=== PATIENT | female | born 1970 | race Caucasian/White ===

== ENCOUNTER → 2019-11-11 14:40 | Outpatient (CLI) | payer BC, SELFPAY ==
[2019-11-11 14:49] LABS: Basophils # 0.1 K/mm3 (0-0.2); Basophils % 1.3 % (0.1-2.0); Chloride 104 mmol/L (98-107); Eosinophils # 0.2 K/mm3 (0.0-0.4); Eosinophils % 2.3 % (0.1-12.0); Hematocrit 44.2 % (37.0-47.0); Hemoglobin 15.1 g/dL (12.2-16.2); Lymphocytes # 1.9 K/mm3 (0.7-4.5); Lymphocytes % 29.8 % (10-50); Mean Corpuscular HGB Conc 34.1 g/dL (31.8-35.4); Mean Corpuscular Hemoglobin 33.1 pg (27.0-31.2); Mean Corpuscular Volume 97.1 fl (81-99); Mean Platelet Volume 9.3 fl (7.4-10.4); Monocytes # 0.5 K/mm3 (0.1-1.0); Monocytes % 7.2 % (1.7-9.3); Neutrophils # 3.9 K/mm3 (1.8-7.8); Neutrophils % 59.5 % (37.0-80.0); Platelet Count 333 K/mm3 (142-424); Red Blood Count 4.55 M/mm3 (4.20-5.40); Red Cell Distribution Width 13.2 % (11.5-17.5); White Blood Count 6.5 K/mm3 (4.8-10.8)
[2019-11-11 14:50] LABS: Potassium 4.9 mmoL/L (3.5-5.1); Sodium 136 mmol/L (136-145)
[2019-11-11 14:52] LABS: Alanine Aminotransferase 19 U/L (12-78); Aspartate Amino Transferase 33 U/L (14-36); Blood Urea Nitrogen 11 mg/dl (7-17); Estimated Glomerular Filt Rate 132 ml/min (>60); GFR (African American) 159 ML/MIN (>60)
[2019-11-11 14:53] LABS: Albumin Level 4.2 g/dl (3.5-5.0); Albumin/Globulin Ratio 1.6 (1.1-1.8); Alkaline Phosphatase 83 U/L (38-126); Anion Gap 10.9 mEq/L (5-15); Bilirubin,Total 0.8 mg/dl (0.2-1.3); Calcium 9.9 mg/dl (8.4-10.2); Carbon Dioxide 26 mmol/L (22.0-30.0); Cholesterol 202 mg/dl (140-200); Globulin 2.7 g/dL (1.3-3.2); Glucose 105 mg/dl (74-100); HDL Cholesterol 72 mg/dl (40-60); Total Protein,Serum 6.9 g/dl (6.3-8.2); Triglycerides 80 mg/dl (30-150); VLDL Cholesterol 16 mg/dL (0-40)
[2019-11-11 14:55] LABS: Chol/HDL Ratio 2.8 (1-3.5)
[2019-11-11 15:12] LABS: Free T4 (Free Thyroxine) 0.97 ng/dl (0.78-2.19)
[2019-11-11 15:25] LABS: Thyroid Stimulating Hormone 1.33 uIU/mL (0.465-4.68)
[2019-11-11 16:07] LABS: 25-OH Vitamin D, Total 40.8 ng/mL (30-100)
== END ==
PROVIDERS: Visit Provider Emergency Medicine
DX: R53.83 Other fatigue (principal); E55.9 Vitamin D deficiency, unspecified
CPT/HCPCS: 80053; 80061; 82306; 84439; 84443; 85025

== ENCOUNTER → 2020-01-04 13:17 | Outpatient (CLI) | payer SELFPAY ==
--- NOTE | 2020-01-04 13:23 | CA_ITS ---
APPROVED REPORT EXAM: Comprehensive 2D, Doppler, and color-flow Echocardiogram Client Hr Manager: Naina Rodriguez CRT Ht: 5 ft 9 in Wt: 166lbs BSA: 1.91 BP: 130/78 mmHg Indications: Hypertension/HDD, smoker, tachycardia 2D Dimensions LVOT 1.80 cm (M/F) 1.5-2.5 M-Mode Dimensions RVDd 2.50 cm (0.9-2.6) LA Diam 4.00 cm (1.9-4.0) LVDd 4.80 cm (3.5-5.7) Ao Diam 3.00 cm (2.0-3.7) LVDs 2.90 cm (3.5-5.7) AV Cusp 1.90 cm (1.5-2.6) IVSd 1.00 cm (0.6-1.1) PWd 0.70 cm (0.6-1.1) EF (Teich) 70.20% FS 39.60% EDV (Teich) 108.00 mL ESV (Teich) 32.20 mL LV Diastology LAT E' 8.87 (<10 cm/sec) Aortic Valve AoV Peak Kelby. 225.00 (50-130 cm/s) AO Peak GR. 20.00 mmHg Pulmonary Valve PA End VMAX 119.00 cm/s PA Accel Time 169.00 (>120 msec) Tricuspid Valve TR P. Velocity 262.00 cm/s RAP Estimate 10.00 mmHg RVSP 37.00 mmHg Left Ventricle Left atrium is mildly enlarged, left ventricle is normal size, mild concentric left ventricular hypertrophy, hyperdynamic left ventricular systolic function, visually estimated ejection fraction over 65% with no regional wall motion abnormality, grade 1 diastolic dysfunction seen without tissue Doppler evidence of raise left atrial pressure. Right Ventricle Right atrium and right ventricle are normal size and contractility. Aortic Valve Aortic valve is minimally thickened and fibrosed, there is no aortic stenosis or aortic insufficiency. Mitral Valve Mitral valve is grossly normal, there is mild mitral regurgitation. Tricuspid Valve Tricuspid valve grossly normal, there is mild tricuspid regurgitation, tricuspid regurgitation jet velocity is inadequate for calculation of the right ventricular systolic pressure. Pulmonic Valve Pulmonic valve is poorly visualized. Great Vessels Aortic root is normal size. Pericardium No significant pericardial effusion noted. Conclusion 1. Mildly enlarged left atrium, normal left ventricular size, mild concentric left ventricular hypertrophy, hyperdynamic left ventricular systolic function, visually estimated ejection fraction over 65% with no regional wall motion abnormality, grade 1 diastolic dysfunction seen without tissue Doppler evidence of raise left atrial pressure. 2. Mild mitral and tricuspid regurgitation. 3. No significant pericardial effusion noted. Electronically signed by : Kush Givens, 01/04/2020 20:43:53
== END ==
PROVIDERS: PCP Emergency Medicine; Visit Provider Emergency Medicine
DX: R00.0 Tachycardia, unspecified (principal)
CPT/HCPCS: 93306

== ENCOUNTER → 2021-04-21 15:48 | Outpatient (CLI) | payer BC, SELFPAY ==
[2021-04-21 16:09] LABS: Alanine Aminotransferase 14 U/L (12-78); Albumin Level 4.3 g/dl (3.5-5.0); Albumin/Globulin Ratio 1.8 (1.1-1.8); Alkaline Phosphatase 76 U/L (38-126); Anion Gap 9.3 mEq/L (5-15); Aspartate Amino Transferase 27 U/L (14-36); Bilirubin,Total 0.5 mg/dl (0.2-1.3); Blood Urea Nitrogen 13 mg/dl (7-17); Calcium 9.6 mg/dl (8.4-10.2); Carbon Dioxide 27 mmol/L (22.0-30.0); Chloride 103 mmol/L (98-107); Chol/HDL Ratio 3.3 (1-3.5); Cholesterol 214 mg/dl (140-200); Estimated Glomerular Filt Rate 106 ml/min (>60); GFR (African American) 128 ML/MIN (>60); Globulin 2.4 g/dL (1.3-3.2); Glucose 117 mg/dl (74-100); HDL Cholesterol 64 mg/dl (40-60); Potassium 4.3 mmoL/L (3.5-5.1); Sodium 135 mmol/L (136-145); Total Protein,Serum 6.7 g/dl (6.3-8.2); Triglycerides 100 mg/dl (30-150); VLDL Cholesterol 20 mg/dL (0-40)
[2021-04-21 16:18] LABS: Basophils # 0.1 K/mm3 (0-0.2); Basophils % 1.7 % (0.1-2.0); Eosinophils # 0.1 K/mm3 (0.0-0.4); Hematocrit 47.1 % (37.0-47.0); Hemoglobin 15.2 g/dL (12.2-16.2); Lymphocytes # 1.7 K/mm3 (0.7-4.5); Lymphocytes % 26.5 % (10-50); Mean Corpuscular HGB Conc 32.2 g/dL (31.8-35.4); Mean Corpuscular Hemoglobin 32.8 pg (27.0-31.2); Mean Corpuscular Volume 101.8 fl (81-99); Mean Platelet Volume 9.8 fl (7.4-10.4); Monocytes # 0.5 K/mm3 (0.1-1.0); Monocytes % 6.9 % (1.7-9.3); Neutrophils # 4.1 K/mm3 (1.8-7.8); Neutrophils % 63.9 % (37.0-80.0); Platelet Count 404 K/mm3 (142-424); Red Blood Count 4.63 M/mm3 (4.20-5.40); Red Cell Distribution Width 13.5 % (11.5-17.5); White Blood Count 6.5 K/mm3 (4.8-10.8)
[2021-04-21 16:20] LABS: Direct LDL Cholesterol 129.54 mg/dL (100-129)
== END ==
PROVIDERS: Visit Provider Emergency Medicine
DX: I10 Essential (primary) hypertension (principal); E55.9 Vitamin D deficiency, unspecified
CPT/HCPCS: 80053; 80061; 82306; 84439; 84443; 85025

== ENCOUNTER → 2022-05-08 23:00 | Outpatient (CLI) | payer BC, SELFPAY ==
[2022-05-08 22:31] LABS: Basophils # 0.1 K/mm3 (0-0.2); Basophils % 1.4 % (0.1-2.0); Eosinophils # 0.1 K/mm3 (0.0-0.4); Eosinophils % 1.9 % (0.1-12.0); Hematocrit 44.3 % (37.0-47.0); Hemoglobin 14.4 g/dL (12.2-16.2); Lymphocytes # 2.6 K/mm3 (0.7-4.5); Lymphocytes % 37.7 % (10-50); Mean Corpuscular HGB Conc 32.5 g/dL (31.8-35.4); Mean Corpuscular Hemoglobin 31.7 pg (27.0-31.2); Mean Corpuscular Volume 97.6 fl (81-99); Mean Platelet Volume 9.4 fl (7.4-10.4); Monocytes # 0.5 K/mm3 (0.1-1.0); Monocytes % 6.5 % (1.7-9.3); Neutrophils # 3.6 K/mm3 (1.8-7.8); Neutrophils % 52.5 % (37.0-80.0); Platelet Count 361 K/mm3 (142-424); Red Blood Count 4.54 M/mm3 (4.20-5.40); Red Cell Distribution Width 12.9 % (11.5-17.5); White Blood Count 6.9 K/mm3 (4.8-10.8)
[2022-05-08 22:37] LABS: Alanine Aminotransferase 19 U/L (12-78); Albumin Level 4.6 g/dl (3.5-5.0); Albumin/Globulin Ratio 1.8 (1.1-1.8); Alkaline Phosphatase 99 U/L (38-126); Aspartate Amino Transferase 32 U/L (14-36); Bilirubin,Total 0.3 mg/dl (0.2-1.3); Blood Urea Nitrogen 16 mg/dl (7-17); Calcium 9.5 mg/dl (8.4-10.2); Carbon Dioxide 26 mmol/L (22.0-30.0); Chloride 107 mmol/L (98-107); Chol/HDL Ratio 3.3 (1-3.5); Cholesterol 223 mg/dl (140-200); Estimated Glomerular Filt Rate 105 ml/min (>60); GFR (African American) 128 ML/MIN (>60); Globulin 2.5 g/dL (1.3-3.2); Glucose 110 mg/dl (74-100); HDL Cholesterol 67 mg/dl (40-60); Total Protein,Serum 7.1 g/dl (6.3-8.2); Triglycerides 110 mg/dl (30-150); VLDL Cholesterol 22 mg/dL (0-40)
[2022-05-08 22:47] LABS: Direct LDL Cholesterol 121.01 mg/dL (100-129)
[2022-05-08 22:48] LABS: Sodium 140 mmol/L (136-145)
[2022-05-08 22:53] LABS: 25-OH Vitamin D, Total 41.4 ng/mL (30-100)
[2022-05-08 22:54] LABS: Free T4 (Free Thyroxine) 1.02 ng/dl (0.78-2.19)
[2022-05-08 23:08] LABS: Thyroid Stimulating Hormone 1.37 uIU/mL (0.465-4.68)
== END ==
PROVIDERS: PCP Emergency Medicine; Visit Provider Emergency Medicine
DX: I10 Essential (primary) hypertension (principal); E55.9 Vitamin D deficiency, unspecified; Z79.899 Other long term (current) drug therapy
CPT/HCPCS: 80053; 80061; 82306; 84439; 84443; 85025

== ENCOUNTER 2022-09-03 16:00 | Outpatient (RCR) | payer BC, SELFPAY ==
--- NOTE | 2022-07-27 15:27 | HMH.PTOPEV ---
PT Outpatient Evaluation Rehab PT Outpatient Evaluation Start: 07/27/22 15:16 Freq: Status: Active Protocol: Document 07/27/22 15:16 BOY (Rec: 07/27/22 15:27 BOY [id number]) E-signed By Albert Martinez, PT Outpatient Therapy Subjective History Subjective History Patient is a 51 year old female presenting to outpatient PT with reports of acute LBP with no reports of radicular symptoms of insidious onset starting approx 2 months. Patient reports that she had a simialar bout of LPB approx 20 years ago as a result of a bulging disc. She was prescribed oral steriods and muscle relaxers that have provided minimal relief. Pain specific to R PSIS. SI special tests negative for malalignment today. Comorbidities incude HTN. Chief Complaint Pain Symptom Type Ache,Dull Symptoms Relieved By Activity Symptoms Aggravated By Sitting,Bending/Stooping, Lifting Prior Functional Limitations None Current Functional Limitations Lifting,Sitting,Bending/ Stooping Symptom Description Constant but Variable Level of pain today (0-10) 6 Pain scale - at its best (0-10) 6 Pain scale - at its worst (0-10) 7 Lumbopelvic Eval Posture Thoracic Spine Posture Standing Position Increased Kyphosis Lumbar Spine Posture Standing Position Increased Lordosis Palapation tenderness right Lumbar/Sacral Palpation Overall Comment PSIS 2/4 Accessory Movement L5 right S1 right Range of Motion Lumbar Spine Active Flexion Range of 59 Motion (degrees) Lumbar Spine Active Extension Range of 21 Motion (degrees) Left Lumbar Spine Lateral Flexion Active 16 Range of Motion (degrees) Right Lumbar Spine Lateral Flexion 20 pain Active Range of Motion (degrees) Lumbar Spine ROM Limitations Soft Tissue Tightness Manual Muscle Test Bilateral Knee Extension Strength Grade 5 Normal Knee Flexion Strength Grade 5 Normal Hip Flexion Strength Grade 5 Normal Extensor Hallucis Longus Strength Grade 5 Normal Ankle Dorsiflexion Strength Grade 5 Normal Gastronemius/Soleus Strength Grade 5 Normal Special Tests Hip Anival (ANGELY) Test Positive Left,Positive Right Hip Jodee Test
== END 2022-09-03 16:05 | disposition home or self-care (01) ==
LOC: PT 16:00
PROVIDERS: PCP Emergency Medicine; Visit Provider Emergency Medicine
DX: M54.41 Lumbago with sciatica, right side (principal); M54.42 Lumbago with sciatica, left side
CPT/HCPCS: 97010; 97012; 97014; 97110; 97163; G0283

== ENCOUNTER → 2022-10-16 12:50 | Outpatient (CLI) | payer BC, SELFPAY ==
--- NOTE | 2022-10-16 12:50 | MR_ITS ---
FINAL REPORT TECHNIQUE: Multiplanar and multisequence imaging of the lumbar spine was obtained without contrast. CLINICAL HISTORY: Lower back pain worse on right side. right leg and hip pain numbness and tingling. FINDINGS: There is normal alignment of the lumbar vertebral bodies. Vertebral body height is preserved. The spinal cord ends at the level of L2. There is normal signal intensity within the substance of the distal spinal cord. No acute bone marrow edema or pathologic marrow replacement. No acute paraspinal abnormality is identified. L1-2: There is no focal disc herniation, central canal stenosis or neuroforaminal narrowing. L2-3: There is no focal disc herniation, central canal stenosis or neuroforaminal narrowing. L3-4: There is a right paracentral extruded disc. Disc material contacts and posteriorly displaces the right L4 nerve root within the canal. There is moderate central canal stenosis. There is mild bilateral neural foraminal narrowing. L4-5: There is an annular bulge with degenerative endplate change and facet osteoarthropathy. There is a superimposed disc protrusion. There is mild central canal stenosis. There is moderate right and mild left neural foraminal narrowing. L5-S1: There is an annular bulge with degenerative endplate change and facet osteoarthropathy. There is no central canal stenosis. There is mild right neural foraminal narrowing. IMPRESSION: Right paracentral extruded disc at L3-L4 contacts and posteriorly displaces the right L4 nerve root within the canal. Multilevel degenerative disease at other levels as described. Reviewed, Interpreted and Dictated by Rachel Francois MD Transcribed by Luke Castro Authenticated and . [facility]
== END ==
LOC: RAD 12:50
PROVIDERS: PCP Emergency Medicine; Visit Provider Nurse Practitioner Family
DX: M54.50 Low back pain, unspecified (principal); M54.41 Lumbago with sciatica, right side; M54.42 Lumbago with sciatica, left side
CPT/HCPCS: 72148; 76376

== ENCOUNTER → 2022-12-14 13:27 | Outpatient (POV) | payer BC, SELFPAY ==
[2022-12-14 13:29] VITALS: BP 156/89; PULSE 121; RESP 18; O2SAT 98; BMI 21.4
--- NOTE | 2022-12-14 14:03 | EXP.PAIN.OV ---
HPI Data of Consult Patient: new to practice Consult date: 12/14/22 Requesting Physician: Anival Dudley CRNA Primary Care Provider: Jeromy Vega MD Consult Narrative Reason for consult: Lumbar back pain. Bilateral hip and leg radicular symptoms. History of present illness: Ms. Bustamante is a 52 year old female who comes our clinic today for initial evaluation regarding chronic low back pain she describes as constant, dull, aching. Patient also complains of bilateral hip and leg radicular symptoms. Patient rates her pain 7/10. Patient is referral from Dr. Dsouza. He does not recommend any surgery at this time. Patient's lumbar MRI shows degenerative disc lumbar spine multiple levels. Disc bulge L4-5, L5-S1. Disc herniation L3-4. Patient attended physical therapy for 6 weeks in the month of August and September. She reports pain did decrease towards the end of physical therapy session. However, 1 week after physical therapy pain returned in its entirety. Patient is currently taking Flexeril 10 mg 1 p.o. as needed. Patient tried and failed tramadol secondary to nausea and vomiting. Her Tang #[id number] has been reviewed and appropriate. I discussed in detail with the patient regarding lumbar epidural steroid injection at the L3-4 level. Answered questions. Patient wishes to proceed. CC: Anival Dudley CRNA [facility] Disclaimer: The information contained in this section may have been updated after the patient was seen, as this information can be updated by other users. Medical History Hypertension Tachycardia with heart rate 100-120 beats per minute Family History Father Afib Social History Smoking Status: Current every day smoker tobacco type: cigarettes packs per day: 1 alcohol intake: current substance use type: denies use current occupational status: employed Travel in the last 8 weeks: None household members: significant other housing: house Meds Home Medications and Allergies Home Medications Medication Instructions Recorded Confirmed Type cyclobenzaprine 10 mg tablet 10 mg PO TID PRN muscle spasm #60 10/03/22 11/30/22 Rx tabs atorvastatin 10 mg tablet See Rx Instructions .Route 11/12/22 11/30/22 Rx .COMPLEX #90 tabs lisinopril 10 mg tablet See Rx Instructions .Route 11/12/22 11/30/22 Rx .COMPLEX #30 tabs metoprolol succinate 50 mg 50 mg PO DAILY #90 tabs 11/30/22 11/30/22 Rx tablet,extended release 24 hr (Toprol XL) New Prescriptions to Start Prescriptions: Allergies Allergy/AdvReac Type Severity Reaction Status Date / Time No Known Allergies Allergy Verified 11/30/22 12:54 Assessment and Plan *Assessment and plan (1) Lumbar disc disease with radiculopathy: Status: Acute Category: Medical Code(s): M51.16 - Intervertebral disc disorders with radiculopathy, lumbar region (2) Lumbar canal stenosis: Status: Acute Category: Medical Code(s): M48.061 - Spinal stenosis, lumbar region without neurogenic claudication (3) Lumbar foraminal stenosis: Status: Acute Category: Medical Code(s): M48.061 - Spinal stenosis, lumbar region without neurogenic claudication (4) Spinal cord compression: Status: Acute Category: Medical Code(s): G95.20 - Unspecified cord compression (5) Low Back Pain: Status: Acute Qualifiers: Chronicity: acute Back pain laterality: bilateral Sciatica presence: with sciatica Sciatica laterality: sciatica of right side Qualified Code(s): M54.41 - Lumbago with sciatica, right side Category: Medical Code(s): M54.50 - Low back pain, unspecified Plan Discussed treatment options in detail with the patient. I recommend lumbar epidural steroid injection at the L3-4 le
== END ==
PROVIDERS: PCP Emergency Medicine; Visit Provider Nurse Anesthetist, Certified Registered
DX: M51.16 Intervertebral disc disorders with radiculopathy, lumbar region (principal); M48.061 Spinal stenosis, lumbar region without neurogenic claudication; G95.20 Unspecified cord compression; M54.41 Lumbago with sciatica, right side
CPT/HCPCS: 99202; G0463

== ENCOUNTER 2022-12-25 10:17 | Day surgery (SDC) | payer BC, SELFPAY ==
[2022-12-25 10:30] VITALS: BP 169/91; PULSE 112; RESP 16; TEMP 37; O2SAT 99; BMI 21.4
--- NOTE | 2022-12-25 10:34 | EXP.PAIN.PRO ---
Procedure Date: 12/25/22 Time: 10:35 Anesthesiologist:: Anival Dudley CRNA Complications:: None Pre-procedure Diagnosis:: Degenerative disc lumbar spine multilevels. Lumbar radiculopathy. Disc bulge L4-5, L5-S1. Disc herniation L3-4. Post-procedure Diagnosis:: Same. Indications for Procedure:: Very pleasant 52-year-old female that comes our clinic today for lumbar epidural steroid injections L3-4 level. Patient complains of low back pain she describes as constant, dull, aching. Patient also complains of bilateral hip and leg radicular symptoms. She rates her pain 7/10. Procedure Details:: Procedure: Lumbar epidural steroid injection under fluoroscopy Informed consent was obtained and the risks and benefits of the procedure were explained to the patient. The patient was taken to the procedure room and noninvasive monitors placed, including noninvasive blood pressure cuff and pulse oximeter. The back was viewed using C-arm Fluoroscopy and prepped using Chloraprep as a cleansing solution and the L4-L5 interspace was palpated. Skin and subcutaneous tissues were anesthetized using lidocaine 1.5% and a 25-gauge needle. After this, an 18-gauge Touhy epidural needle was placed into the L4-L5 interspace and advanced using fluoroscopic guidance and loss of resistance to air until the epidural space was encountered. After confirmation of needle placement in the epidural space, with dye, a solution containing normal saline, 3 mL and Depo-Medrol 80 mg were incrementally injected into the lumbar epidural space. The patient tolerated the procedure well with no complications. The patient was observed in the Pain Clinic and then discharged home neurologically intact. Plan and Disposition:: Patient was discharged without incident.
[2022-12-25 10:43] VITALS: BP 173/98; PULSE 114; RESP 18; O2SAT 99
[2022-12-25 10:44] VITALS: BP 167/102; PULSE 124; RESP 18; O2SAT 99
[2022-12-25 10:45] VITALS: BP 167/102; PULSE 124; RESP 18; O2SAT 99
== END 2022-12-25 10:43 | disposition home or self-care (01) ==
PROVIDERS: PCP Emergency Medicine; Visit Provider Nurse Anesthetist, Certified Registered
DX: M51.16 Intervertebral disc disorders with radiculopathy, lumbar region (principal)
CPT/HCPCS: 62323; J1040

== ENCOUNTER → 2023-01-11 11:25 | Outpatient (POV) | payer BC, SELFPAY ==
[2023-01-11 11:38] VITALS: BP 180/99; PULSE 117; RESP 20; BMI 21.4
--- NOTE | 2023-01-11 12:00 | A.OFFVIS_ITS ---
[facility] Pain Management SOAP Note Subjective:: This patient is a very pleasant 52-year-old female that comes our clinic today for follow-up visit after receiving lumbar epidural steroid injection at the L4- 5 level on 12/25/2022. Patient reports 0 pain following injection. Prior to the injection patient complained of low lumbar back pain as well as bilateral hip and leg radicular symptoms. Patient's MRI shows degenerative disc lumbar spine multilevels. Disc bulge L4-5, L5-S1. Disc herniation L3-4. Patient has surgery consultation in [address] Dsouza at the [facility]. Based on that visit she will contact us for further treatment if necessary. Patient's Tang #[id number] has been reviewed and appropriate. Patient rates her pain today 0/10. Objective:: Patient is awake alert [place] x3. No acute distress. Flexion-extension lumbar spine somewhat guarded secondary to pain. Deep tendon reflexes upper and lower extremities normal. Motor strength upper and lower extremities normal. There is no gross sensory deficit. Gait is normal. Assessment:: Degenerative disc disease lumbar spine multilevels. Lumbar radiculopathy. Disc bulge L4-5, L5-S1. Disc herniation L3-4. Plan:: Patient will contact us after surgical consultation with Dr. Dsouza at the [facility] in 2 weeks. We will continue treatment for her if in fact no surgery is indicated. [facility] Disclaimer: The information contained in this section may have been updated after the vivienne ent was seen, as this information can be updated by other users. Medical History Hypertension Tachycardia with heart rate 100-120 beats per minute Family History Father Afib Social History Smoking Status: Current every day smoker tobacco type: cigarettes packs per day: 1 alcohol intake: current substance use type: denies use current occupational status: other Travel in the last 8 weeks: None household members: significant other housing: house
== END ==
PROVIDERS: PCP Emergency Medicine; Visit Provider Nurse Anesthetist, Certified Registered
DX: M51.16 Intervertebral disc disorders with radiculopathy, lumbar region (principal)
CPT/HCPCS: 99212; G0463

== ENCOUNTER 2023-08-15 13:04 | Outpatient (CLI) | payer OTHER, SELFPAY ==
[2023-08-15 18:22] LABS: Basophils # 0.1 K/mm3 (0-0.2); Eosinophils # 0.1 K/mm3 (0.0-0.4); Eosinophils % 1.9 % (0.1-12.0); Hematocrit 40.3 % (37.0-47.0); Hemoglobin 12.9 g/dL (12.2-16.2); Lymphocytes # 2.3 K/mm3 (0.7-4.5); Mean Corpuscular HGB Conc 32.1 g/dL (31.8-35.4); Mean Corpuscular Hemoglobin 32.1 pg (27.0-31.2); Mean Platelet Volume 8.9 fl (7.4-10.4); Monocytes # 0.4 K/mm3 (0.1-1.0); Neutrophils # 3.1 K/mm3 (1.8-7.8); Neutrophils % 52.1 % (37.0-80.0); Platelet Count 335 K/mm3 (142-424); Red Blood Count 4.03 M/mm3 (4.20-5.40); Red Cell Distribution Width 13.6 % (11.5-17.5)
[2023-08-15 18:54] LABS: Alanine Aminotransferase 32 U/L (12-78); Albumin Level 4.3 g/dl (3.5-5.0); Albumin/Globulin Ratio 1.7 (1.1-1.8); Alkaline Phosphatase 96 U/L (38-126); Anion Gap 11.7 mEq/L (5-15); Aspartate Amino Transferase 39 U/L (14-36); Bilirubin,Total 0.4 mg/dl (0.2-1.3); Blood Urea Nitrogen 15 mg/dl (7-17); Calcium 9.9 mg/dl (8.4-10.2); Carbon Dioxide 29 mmol/L (22.0-30.0); Chloride 102 mmol/L (98-107); Chol/HDL Ratio 2.1 (1-3.5); Cholesterol 188 mg/dl (140-200); Estimated Glomerular Filt Rate 88 ml/min (>60); GFR (African American) 106 ML/MIN (>60); Globulin 2.6 g/dL (1.3-3.2); Glucose 98 mg/dl (74-100); HDL Cholesterol 89 mg/dl (40-60); Potassium 4.7 mmoL/L (3.5-5.1); Sodium 138 mmol/L (136-145); Total Protein,Serum 6.9 g/dl (6.3-8.2); Triglycerides 125 mg/dl (30-150); VLDL Cholesterol 25 mg/dL (0-40)
[2023-08-15 19:02] LABS: 25-OH Vitamin D, Total 34.8 ng/mL (30-100)
[2023-08-15 19:30] LABS: Thyroid Stimulating Hormone 1.26 uIU/mL (0.465-4.68)
== END 2023-08-15 23:59 | disposition home or self-care (01) ==
LOC: LAB.DROPOF 08-16 13:05
PROVIDERS: Visit Provider Family Medicine
DX: I10 Essential (primary) hypertension (principal); F17.210 Nicotine dependence, cigarettes, uncomplicated; E78.5 Hyperlipidemia, unspecified; Z79.899 Other long term (current) drug therapy
CPT/HCPCS: 80053; 80061; 82306; 84443; 85025

== ENCOUNTER 2024-09-22 13:47 | Outpatient (CLI) | payer OTHER, SELFPAY ==
--- OUTSIDE RECORDS SUMMARY | 2024-09-22 13:50 | XMS_ITS | Clinical Summary ---
Author Organization Healthcare Address [address] [place] [address] Care Team Providers Care Account Executive Agribusiness Name Role Phone Olaf Dsouza MD Unavailable [phone] Jeromy Vega MD Primary Care Provider + [phone] Allergies No known active allergies Medications atorvastatin (Lipitor) 10 MG tablet 1 (one) time each day. 11/12/2022 Active lisinopril 10 MG tablet Take 1 tablet (10 mg) by mouth 1 (one) time each day. 11/16/2022 Active metoprolol succinate XL (Toprol-XL) 25 MG 24 hr tablet Take 1 tablet (25 mg) by mouth 1 (one) time each day. 10/16/2022 Active cyclobenzaprine (Flexeril) 10 MG tablet Take 1 tablet (10 mg) by mouth if needed. 10/03/2022 Active Active Problems No known active problems Family History Medical History Relation Name Comments Back pain/problems Brother Back pain/problems Father Relation Name Status Comments Brother Father Social History Tobacco Use Types Packs/Day Years Used Date Smoking Tobacco: Every Day Cigarettes 1 25 Smokeless Tobacco: Never Alcohol Use Standard Drinks/Week Comments Yes 0 (1 standard drink = 0.6 oz pur e alcohol) Socially Comments Unknown Sex and Gender Information Value Date Recorded Sex Assigned at Not on file Legal Sex Female 8:12 PM EDT Gender Identity Not on file Sexual Orientation Not on file Last Filed Vital Signs Vital Sign Reading Time Taken Comments Blood Pressure 165/101 01/29/2023 1:52 PM EDT Pulse - - Temperature - - Respiratory Rate - - Oxygen Saturation - - Inhaled Oxygen Concentration - - Weight 68 kg (150 lb) 01/29/2023 1:52 PM EDT Height 175.3 cm (5' 9 ) 01/29/2023 1:52 PM EDT Body Mass Index 22.15 01/29/2023 1:52 PM EDT Plan of Treatment Health Maintenance Due Date Last Done Comments [facility]-Depression Screening 1970 [facility]-HIV Screening 1970 [facility]-Hepatitis C Screening 1970 [facility]-Infant/Child/Adol SDOH Screenings 1970 [facility]- SDOH Screenings 1988 [facility]-Adult SDOH Screenings 1988 [facility]-Hepatitis B Vaccines (1 of 3 - 19+ 3-dose series) 1989 [facility]-Pap Smear 11/28/1991 [facility]-DTaP,Tdap,and Td Vaccine s (1 - Tdap) 06/04/1996 06/03/1996 [facility]-Cervical Cancer Screening 2000 [facility]-HPV/Cotest 2000 CT Colonography 11/28/2015 Colonoscopy 11/28/2015 FIT-DNA 11/28/2015 FIT 11/28/2015 FOBT 11/28/2015 Sigmoidoscopy 11/28/2015 [facility]-Colorectal Cancer Screening 11/28/2015 [facility]-Breast Cancer Screening 2020 [facility]-Pneumococcal Vaccine: 50 + Years (1 of 1 - PCV) 2020 [facility]-Zoster Vaccines (1 of 2) 2020 [id number] Vaccine (1 - 20 24-25 season) 2023 [facility]-Influenza Vaccine ([place]as[place] n Ended) 2024 HPV Vaccines Aged Out No longer eligi ble based on patient's age to complete this topic [facility]-HIB Vaccines Aged Out No longer e ligible based on patient's age to complete this topic [facility]-Hepatitis A Vaccines Aged Out No longer eligible based on patient's age to complete this topic [facility]-IPV Vaccines Aged Out No longer e ligible based on patient's age to complete this topic [facility]-Rotavirus Vaccines Aged Out No lo nger eligible based on patient's age to complete this topic Insurance [employer] Care Teams Account Executive Agribusiness Relationship Specialty Start Date End Date Jeromy Vega MD [address] [place] [id number] PCP - General 11/27/22 Olaf Dsouza MD [address] [facility] [address] [place] [address] Surgeon Neurosurgery 11/27/22
--- OUTSIDE RECORDS SUMMARY | 2024-09-22 13:50 | XMS_ITS | Encounter Summary ---
Author Organization Healthcare Address [address] [place] [address] Care Team Providers Care Courier Delivery Driver Name Role Phone Olaf Dsouza MD Unavailable [phone] Jeromy Vega MD Primary Care Provider [phone] Encounter Details Date Type Department Care Team (Late st Contact Info) Description 10/16/2022 Orders Only External Location [address] [place] [address] Stalin Ramirez APRN [address] [place] [address] Social History Tobacco Use Types Packs/Day Years Used Date Smoking Tobacco: Never Assessed Comments Unknown Sex and Gender Information Value Date Recorded Sex Assigned at Not on file Legal Sex Female 8:12 PM EDT Gender Identity Not on file Sexual Orientation Not on file documented as of this encounter Plan of Treatment Not on file documented as of this encounter Procedures Procedure Name Priority Date/Time Associated Diagnosis Comments MR OUTSIDE IMAGES 10/16/2022 12:48 PM EDT documented in this encounter Results * MR transfer of outside films (10/16/2022 12:48 PM EDT) Anatomical Region Laterality Modality Magnetic Resonan ce 10/16/2022 12:4 8 PM EDT Stalin Ramirez OUTBOARD [employer]ORS EXPERIMENTAL MECHANIC IMG MRI PROCEDURES Final Re sult documented in this encounter Visit Diagnoses Not on filedocumented in this encounter Care Teams Courier Delivery Driver Relationship Specialty Start Date End Date Jeromy Vega MD [address] [place] [address] PCP - General 11/27/22 Olaf Dsouza MD [address] [place] [address] Surgeon Neurosurgery 11/27/22 documented as of this encounter
--- NOTE | 2024-09-22 13:53 | XR_ITS ---
FINAL REPORT CLINICAL HISTORY: Left Hand fx FINDINGS: LEFT HAND 4 views demonstrate no acute fracture or dislocation. The visualized joint spaces are normally aligned. Mild degenerative changes are noted. The soft tissues are unremarkable. IMPRESSION: No acute process. Reviewed, Interpreted and Dictated by Nathaly Knight MD Transcribed by Tori Hernandez Authenticated and [facility]
== END 2024-09-22 23:59 | disposition home or self-care (01) ==
LOC: RAD 13:48
PROVIDERS: PCP Family Medicine; Visit Provider Physician Assistant
DX: S62.92XA Unspecified fracture of left hand, initial encounter for closed fracture (principal)
CPT/HCPCS: 73130

== ENCOUNTER 2024-11-19 12:23 | Outpatient (CLI) | payer OTHER, SELFPAY ==
[2024-11-19 19:07] LABS: Hematocrit 38.8 % (37.0-47.0); Hemoglobin 12.6 g/dL (12.2-16.2); Immature Granulocytes % 0.2 %; Mean Corpuscular HGB Conc 32.5 g/dL (31.8-35.4); Mean Corpuscular Hemoglobin 31.6 pg (27.0-31.2); Mean Corpuscular Volume 97.2 fl (81-99); Nucleated Red Blood Cells % 0 %; Platelet Count 330 K/mm3 (142-424); Red Blood Count 3.99 M/mm3 (4.20-5.40); Red Cell Distribution Width-SD 45.5 fL; White Blood Count 6.4 K/mm3 (4.8-10.8)
[2024-11-19 19:57] LABS: Alanine Aminotransferase 18 U/L (12-78); Albumin Level 4.3 g/dl (3.5-5.0); Albumin/Globulin Ratio 1.7 (1.1-1.8); Alkaline Phosphatase 96 U/L (38-126); Anion Gap 12.2 mEq/L (5-15); Aspartate Amino Transferase 29 U/L (14-36); Bilirubin,Total 0.4 mg/dl (0.2-1.3); Blood Urea Nitrogen 15 mg/dl (7-17); Calcium 9.6 mg/dl (8.4-10.2); Carbon Dioxide 25 mmol/L (22.0-30.0); Chloride 105 mmol/L (98-107); Cholesterol 165 mg/dl (140-200); Creatinine,Serum 0.70 mg/dl (0.52-1.04); Estimated Glomerular Filt Rate 88 ml/min (>60); GFR (African American) 106 ML/MIN (>60); Globulin 2.6 g/dL (1.3-3.2); Glucose 107 mg/dl (74-100); HDL Cholesterol 67 mg/dl (40-60); Potassium 4.2 mmoL/L (3.5-5.1); Sodium 138 mmol/L (136-145); Total Protein,Serum 6.9 g/dl (6.3-8.2); Triglycerides 96 mg/dl (30-150)
[2024-11-19 20:27] LABS: Thyroid Stimulating Hormone 0.70 uIU/mL (0.465-4.68)
--- OUTSIDE RECORDS SUMMARY | 2024-11-23 12:28 | XMS_ITS | Clinical Summary ---
Author Organization Healthcare Address [address] [place] [address] Care Team Providers Care Proposition Player Name Role Phone Olaf Dsouza MD Unavailable [phone] Jeromy Vega MD Primary Care Provider + [phone] Allergies No known active allergies Medications atorvastatin [...] [facility]-HIV Screening 1970 [facility]-Hepatitis C Screening 1970 [facility]-/Child/Adol SDOH Screenings 1970 [facility]- SDOH Screenings 1988 [...] 2020 [facility]-Zoster Vaccines (1 of 2) 2020 [id number] Vaccine (1 - 20 24-25 season) 2023 [facility]-Influenza Vaccine (#1) 2024 HPV Vaccines Aged Out No longer [...] patient's age to complete this topic Insurance ANTHEM Care Teams Proposition Player Relationship Specialty Start Date End Date Jeromy Vega MD [address] [place] [address] PCP - General 11/27/22 Olaf Dsouza MD [address] [facility] [address] [place] [address] Surgeon Neurosurgery 11/27/22
--- OUTSIDE RECORDS SUMMARY | 2024-11-23 12:29 | XMS_ITS | Encounter Summary ---
Author Organization Healthcare Address [address] [place] [address] Care Team Providers Care Microsoft Bi Developer Name Role Phone Olaf Dsouza MD Unavailable [phone] Jeromy Vega MD Primary Care Provider [phone] Encounter Details Date Type Department Care Team (Late st Contact Info) Description 10/16/2022 Orders Only External Location [address] [place] [address] Stalin Ramirez APRN [address] [place] [address] Social History Tobacco Use Types [...] 10/16/2022 12:4 8 PM EDT Stalin Ramirez CAR SEAT COVERER IMG MRI PROCEDURES Final Re sult documented in this encounter Visit Diagnoses Not on filedocumented in this encounter Care Teams Microsoft Bi Developer Relationship Specialty Start Date End Date Jeromy Vega MD [address] [place] [address] PCP - General 11/27/22 Olaf Dsouza MD [address] [place] [address] Surgeon Neurosurgery 11/27/22 documented as of this encounter
== END 2024-11-19 23:59 ==
LOC: LAB.DROPOF 11-23 12:24
PROVIDERS: PCP Family Medicine; Visit Provider Family Medicine
DX: E78.5 Hyperlipidemia, unspecified (principal); I10 Essential (primary) hypertension
CPT/HCPCS: 80053; 80061; 84443; 85025

== ENCOUNTER 2025-01-15 12:44 | Outpatient (CLI) | payer OTHER, SELFPAY ==
--- NOTE | 2025-01-15 13:00 | MR_ITS ---
FINAL REPORT TECHNIQUE: Multiplanar MR without contrast. CLINICAL HISTORY: rule out occult fx or torn ligament. swelling in wrist on ulnar aspect. symptoms [id number]. COMPARISON: None FINDINGS: There is diffuse mild bone marrow edema in the distal radius, mostly involving the carpal bones and proximal metacarpals. No acute fracture is identified. There are probable subtle erosions involving the distal radius and the carpal bones. A moderate joint effusion is present. There is edema of the joint capsule suggesting synovitis. Carpal tunnel is unremarkable. The TFCC is intact. Visualized tendons are unremarkable. Major ligaments are intact. No cystic or soft tissue mass lesion is seen. IMPRESSION: 1. Findings are suggestive of arthritic disease and synovitis. This may be secondary to rheumatoid arthritis or other inflammatory arthritis's. 2. No evidence of ligament or tendon abnormality. Reviewed, Interpreted and Dictated by Nathaly Knight MD Transcribed by Morelia Hall Authenticated and [facility]
== END 2025-01-15 23:59 | disposition home or self-care (01) ==
LOC: RAD 12:44
PROVIDERS: PCP Family Medicine; Visit Provider Physician Assistant
DX: M25.532 Pain in left wrist (principal); M25.432 Effusion, left wrist; R93.6 Abnormal findings on diagnostic imaging of limbs
CPT/HCPCS: 73221